=== PATIENT | female | born 1985 ===

== ENCOUNTER → 2023-01-03 | Outpatient (CLI) | payer OTHER ==
[2023-01-03 10:56] LABS: Source, Urine Clean Catch
[2023-01-03 11:58] LABS: Amorphous Mod (0-Heavy); Bacteria Rare /hpf; Mucus Light (0-Heavy); Red Blood Cells, Urine 0-2 /hpf (0-2); Squamous Epithelial Cells Rare /hpf (Few); White Blood Cells, Urine 0-2 /hpf (0-5)
[2023-01-05 04:07] LABS: HBSAG SCREEN Negative (Negative); HCV ANTIBODY Reactive (Non Reactive)
[2023-01-06 00:08] LABS: HIV AB/P24 AG SCREEN Non Reactive (Non Reactive)
== END | disposition home or self-care (01) ==
LOC: LAB SHORT 10:53 → LAB 10:53
PROVIDERS: Obstetrics & Gynecology
DX: Z34.01 Encounter for supervision of normal first pregnancy, first trimester (principal)
CPT/HCPCS: 81015; 84443; 86592; 86762; 86803; 86850; 86900; 86901; 87086; 87340; 87389

== ENCOUNTER → 2023-02-21 | Outpatient (CLI) | payer OTHER ==
[2023-02-22 13:00] LABS: Candida species (DNA Probe) Negative (NEGATIVE); G. vaginalis (DNA Probe) Negative (NEGATIVE); T. vaginalis (DNA Probe) Negative (NEGATIVE)
== END | disposition home or self-care (01) ==
LOC: LAB 17:33 → LAB SHORT 17:33
PROVIDERS: Obstetrics & Gynecology
DX: N76.0 Acute vaginitis (principal)
CPT/HCPCS: 87480; 87510; 87660

== ENCOUNTER 2023-08-07 18:53 | Inpatient (IN) | payer BC ==
[~2023-08-07] VITALS: Ht 165.1 cm; Wt 83.2 kg
[2023-08-07 19:41] VITALS: BP 118/74
[2023-08-07] MEDS ORDERED: OMEP20ER PO (20:25)
[2023-08-07] MEDS ORDERED: VALA500 PO (20:26)
[2023-08-07 20:34] LABS: BASOPHILS ABSOLUTE AUTO 0.04 K/mm3 (0.00-0.23); BASOPHILS PERCENT AUTO 0 % (0-2); EOSINOPHILS ABSOLUTE AUTO 0.27 K/mm3 (0.00-0.68); EOSINOPHILS PERCENT AUTO 2 % (0-6); Hematocrit 37.5 % (33.0-51.0); Hemoglobin 13.2 g/dL (11.5-16.0); IMMATURE GRAN PERCENT AUTO 1 % (0-1); LYMPHOCYTES ABSOLUTE AUTO 3.33 K/mm3 (0.84-5.20); LYMPHOCYTES PERCENT AUTO 24 % (21-46); MONOCYTES ABSOLUTE AUTO 1.08 K/mm3 (0.16-1.47); MONOCYTES PERCENT AUTO 8 % (4-13); Mean Corpuscular HGB 30.9 pg (26.0-34.0); Mean Corpuscular HGB Conc 35.2 g/dL (31.5-36.5); Mean Corpuscular Volume 88 fL (80-100); Mean Platelet Volume 11.1 fL (9.1-12.4); NEUTROPHILS ABSOLUTE AUTO 8.98 K/mm3 (1.96-9.15); NEUTROPHILS PERCENT AUTO 65 % (41-73); Platelet Count 281 K/mm3 (150-400); RDW Coefficient Variation 12.8 % (11.7-14.2); RDW Standard Deviation 40.8 fL (35.1-46.3); Red Blood Cell Count 4.27 M/mm3 (3.80-5.20)
[2023-08-08 01:20] VITALS: BP 103/50
[2023-08-08 08:27] VITALS: BP 113/71
== END 2023-08-08 09:04 | disposition home or self-care (01) | DRG 832 ==
LOC: BC 18:53 → OBS 18:53 → BC 19:22
PROVIDERS: ADMIT Obstetrics & Gynecology
DX: O99.323 Drug use complicating pregnancy, third trimester (principal); N39.0 Urinary tract infection, site not specified; O98.313 Other infections with a predominantly sexual mode of transmission complicating pregnancy, third trimester; O23.43 Unspecified infection of urinary tract in pregnancy, third trimester; Z3A.39 39 weeks gestation of pregnancy; F12.90 Cannabis use, unspecified, uncomplicated; B19.20 Unspecified viral hepatitis C without hepatic coma; R12 Heartburn; O99.891 Other specified diseases and conditions complicating pregnancy; A60.09 Herpesviral infection of other urogenital tract; O99.820 Streptococcus B carrier state complicating pregnancy; Z90.89 Acquired absence of other organs; Z87.891 Personal history of nicotine dependence; Z88.5 Allergy status to narcotic agent; Z79.2 Long term (current) use of antibiotics; Z79.899 Other long term (current) drug therapy
CPT/HCPCS: 36415; 85025; 86850; 86900; 86901; A9270; J0290

== ENCOUNTER 2023-08-10 15:47 | Inpatient (IN) | payer BC ==
[~2023-08-10] VITALS: Ht 167.6 cm; Wt 83.0 kg
[~2023-08-10 15:47] MED LIST: OMEP20ER PO; VALA500 PO
[2023-08-10 16:03] VITALS: BP 123/74
[2023-08-10 16:20] LABS: BASOPHILS ABSOLUTE AUTO 0.05 K/mm3 (0.00-0.23); BASOPHILS PERCENT AUTO 0 % (0-2); EOSINOPHILS ABSOLUTE AUTO 0.18 K/mm3 (0.00-0.68); EOSINOPHILS PERCENT AUTO 2 % (0-6); Hematocrit 38.2 % (33.0-51.0); Hemoglobin 13.3 g/dL (11.5-16.0); IMMATURE GRAN ABSOLUTE AUTO 0.06 K/mm3 (0.00-0.10); IMMATURE GRAN PERCENT AUTO 1 % (0-1); LYMPHOCYTES ABSOLUTE AUTO 2.64 K/mm3 (0.84-5.20); LYMPHOCYTES PERCENT AUTO 22 % (21-46); MONOCYTES ABSOLUTE AUTO 0.72 K/mm3 (0.16-1.47); MONOCYTES PERCENT AUTO 6 % (4-13); Mean Corpuscular HGB 30.9 pg (26.0-34.0); Mean Corpuscular HGB Conc 34.8 g/dL (31.5-36.5); Mean Corpuscular Volume 89 fL (80-100); Mean Platelet Volume 10.7 fL (9.1-12.4); NEUTROPHILS ABSOLUTE AUTO 8.54 K/mm3 (1.96-9.15); NEUTROPHILS PERCENT AUTO 70 % (41-73); Platelet Count 268 K/mm3 (150-400); RDW Coefficient Variation 12.8 % (11.7-14.2); RDW Standard Deviation 41.5 fL (35.1-46.3); White Blood Cell Count 12.19 K/mm3 (4.00-11.30)
[2023-08-10 19:26] VITALS: BP 130/71
[2023-08-10 22:24] VITALS: BP 104/57
[2023-08-11] VITALS (26 sets, daily range): BP systolic 101–148; BP diastolic 59–94
[2023-08-12] VITALS (20 sets, daily range): BP systolic 105–140; BP diastolic 55–106
--- NOTE | 2023-08-12 01:55 | NUR ---
08/12/23 0155 Ariadne Lackey TIME: 010.
[2023-08-12 06:07] LABS: BASOPHILS ABSOLUTE AUTO 0.03 K/mm3 (0.00-0.23); BASOPHILS PERCENT AUTO 0 % (0-2); EOSINOPHILS ABSOLUTE AUTO 0.03 K/mm3 (0.00-0.68); EOSINOPHILS PERCENT AUTO 0 % (0-6); Hematocrit 32.1 % (33.0-51.0); Hemoglobin 11.2 g/dL (11.5-16.0); IMMATURE GRAN ABSOLUTE AUTO 0.09 K/mm3 (0.00-0.10); IMMATURE GRAN PERCENT AUTO 1 % (0-1); LYMPHOCYTES PERCENT AUTO 8 % (21-46); MONOCYTES ABSOLUTE AUTO 1.08 K/mm3 (0.16-1.47); MONOCYTES PERCENT AUTO 6 % (4-13); Mean Corpuscular HGB 31.1 pg (26.0-34.0); Mean Corpuscular HGB Conc 34.9 g/dL (31.5-36.5); Mean Corpuscular Volume 89 fL (80-100); Mean Platelet Volume 10.8 fL (9.1-12.4); NEUTROPHILS ABSOLUTE AUTO 16.25 K/mm3 (1.96-9.15); NEUTROPHILS PERCENT AUTO 86 % (41-73); Platelet Count 210 K/mm3 (150-400); RDW Standard Deviation 42.5 fL (35.1-46.3); White Blood Cell Count 18.98 K/mm3 (4.00-11.30)
--- NOTE | 2023-08-12 14:06 | NUR ---
up walking in room viveros out linen changed
[2023-08-13 03:18] VITALS: BP 109/64
[2023-08-13 09:11] VITALS: BP 122/81
[2023-08-13 11:41] VITALS: BP 108/68
[2023-08-13 16:09] VITALS: BP 119/76
[2023-08-13 21:17] VITALS: BP 109/72
[2023-08-13 23:29] VITALS: BP 118/78
[2023-08-14 04:34] VITALS: BP 117/76
[2023-08-14 08:12] VITALS: BP 115/85
[2023-08-14 09:24] LABS: HIV 1,2 COMBO ANTIGEN/ANTIBODY Negative (Negative)
[2023-08-14 09:33] VITALS: BP 130/81
--- NOTE | 2023-08-14 10:38 | NUR ---
BANDS MATCHED. PT TO BE DISCHARGED HOME WITH .
[2023-08-14 13:23] LABS: HCV QNT BY NAAT (IU/ML) Not Detected; HCV QNT BY NAAT (LOG IU/ML) Not Detected; HCV QNT BY NAAT INTERP Not Detected (Not Detected)
== END 2023-08-14 11:05 | disposition home or self-care (01) | DRG 787 ==
LOC: OBS 15:47 → BC 15:52 → OBS 15:56 → BC 16:00
PROVIDERS: Advanced Practice Midwife; ADMIT Obstetrics & Gynecology
PROC: 10D00Z1 Extraction of Products of Conception, Low, Open Approach (ICD-10-PCS; principal; 2023-08-12)
PROC: 0U7C7ZZ Dilation of Cervix, Via Natural or Artificial Opening (ICD-10-PCS; 2023-08-12)
DX: O98.82 Other maternal infectious and parasitic diseases complicating childbirth (principal); N39.0 Urinary tract infection, site not specified; O99.324 Drug use complicating childbirth; O23.43 Unspecified infection of urinary tract in pregnancy, third trimester; B95.1 Streptococcus, group B, as the cause of diseases classified elsewhere; Z3A.39 39 weeks gestation of pregnancy; Z37.0 Single live birth; O98.52 Other viral diseases complicating childbirth; B00.9 Herpesviral infection, unspecified; F12.90 Cannabis use, unspecified, uncomplicated; O98.42 Viral hepatitis complicating childbirth; B19.20 Unspecified viral hepatitis C without hepatic coma; O76 Abnormality in fetal heart rate and rhythm complicating labor and delivery; R12 Heartburn; O99.892 Other specified diseases and conditions complicating childbirth; Z88.5 Allergy status to narcotic agent; Z87.891 Personal history of nicotine dependence; Z79.899 Other long term (current) drug therapy
CPT/HCPCS: 36415; 51702; 85025; 86850; 86900; 86901; 87389; 87522; A9270; J0290; J0456; J0690; J1170; J1200; J1885; J2001; J2270; J2405; J2590; J2704; J2765; J3010; J7050; J7120

== ENCOUNTER → 2025-02-22 | Outpatient (CLI) | payer BC, OTHER ==
[2025-02-23 10:12] LABS: Bacterial Vaginosis PCR Negative (NEGATIVE); Candida Group, PCR DETECTED (NOT DETECT); Candida glabrata-krusei, PCR NOT DETECTED (NOT DETECT)
== END ==
LOC: LAB SHORT 16:51 → LAB 16:51
PROVIDERS: Obstetrics & Gynecology
DX: N76.0 Acute vaginitis (principal)
CPT/HCPCS: 81515

== ENCOUNTER → 2025-04-14 | Outpatient (CLI) | payer BC, OTHER ==
[2025-04-14 19:32] LABS: Bacterial Vaginosis PCR Negative (NEGATIVE); Candida glabrata-krusei, PCR NOT DETECTED (NOT DETECT)
[2025-04-14 19:56] LABS: Candida Group, PCR DETECTED (NOT DETECT)
== END ==
LOC: LAB 16:57 → LAB SHORT 16:57
PROVIDERS: Obstetrics & Gynecology
DX: N89.8 Other specified noninflammatory disorders of vagina (principal)
CPT/HCPCS: 81515

== ENCOUNTER 2025-04-25 12:39 | Inpatient (IN) | payer BC, OTHER ==
[2025-04-25] VITALS (22 sets, daily range): BP systolic 95–118; BP diastolic 49–75
[~2025-04-25] VITALS: Ht 165.1 cm; Wt 82.2 kg
[2025-04-25] MEDS ORDERED: Metoclopramide HCl 5MG / ML 2ML Vial IV ONE (13:05)
[2025-04-25] MEDS ORDERED: Citric Acid/Sodium Citrate 30 ML BTL PO SCH (13:05)
[2025-04-25] MEDS ORDERED: CeFAZolin Sodium 2,000 MG in NS 100 ML IV SCH (13:05)
[2025-04-25 13:35] LABS: BASOPHILS ABSOLUTE AUTO 0.04 K/mm3 (0.00-0.23); BASOPHILS PERCENT AUTO 0 % (0-2); EOSINOPHILS ABSOLUTE AUTO 0.08 K/mm3 (0.00-0.68); EOSINOPHILS PERCENT AUTO 1 % (0-6); Hematocrit 39.6 % (33.0-51.0); Hemoglobin 13.7 g/dL (11.5-16.0); IMMATURE GRAN ABSOLUTE AUTO 0.11 K/mm3 (0.00-0.10); IMMATURE GRAN PERCENT AUTO 1 % (0-1); LYMPHOCYTES ABSOLUTE AUTO 2.19 K/mm3 (0.84-5.20); LYMPHOCYTES PERCENT AUTO 18 % (21-46); MONOCYTES ABSOLUTE AUTO 0.76 K/mm3 (0.16-1.47); MONOCYTES PERCENT AUTO 6 % (4-13); Mean Corpuscular HGB Conc 34.6 g/dL (31.5-36.5); Mean Corpuscular Volume 90 fL (80-100); NEUTROPHILS ABSOLUTE AUTO 8.93 K/mm3 (1.96-9.15); NEUTROPHILS PERCENT AUTO 74 % (41-73); NRBC ABSOLUTE 0.00 K/mm3 (0.00-0.02); NRBC Auto 0.0 /100 WBC (0.0-0.2); Platelet Count 236 K/mm3 (150-400); RDW Coefficient Variation 13.2 % (11.7-14.2); RDW Standard Deviation 43.8 fL (35.1-46.3)
[2025-04-25] MEDS ORDERED: Methylergonovine Maleate 0.2MG / ML 1ML Amp IM PRN (13:40)
[2025-04-25] MEDS ORDERED: Carboprost Tromethamine 250 MCG/ML 1ML Amp IM PRN (13:40)
[2025-04-25] MEDS ORDERED: Oxytocin 10 Unit / ML Vial IM PRN (13:40)
[2025-04-25] MEDS ORDERED: OXYTOCIN/RINGER'S LACTATE 500 ML IV PRN (13:40)
[2025-04-25] MEDS ORDERED: Ondansetron HCl 2 MG / ML 2ML Vial IV PRN ×3 (13:40→17:20)
[2025-04-25] MEDS ORDERED: Tranexamic Acid 100 ML IV SCH (13:40)
[2025-04-25] MEDS ORDERED: PRENATAL TABLE1 EAC2 PO (14:04)
[2025-04-25] MEDS ORDERED: OMEP20ER PO (14:05)
[2025-04-25] MEDS ORDERED: Magnesium250 MG (14:05)
[2025-04-25] MEDS ORDERED: Dexamethasone Sod Phos 10 MG/ML 1ML VIAL ONE (16:13)
[2025-04-25] MEDS ORDERED: FentaNYL Citrate 50 MCG/ML 2 ML Injection ONE (16:13)
[2025-04-25] MEDS ORDERED: Ondansetron HCl 2 MG / ML 2ML Vial ONE (16:13)
[2025-04-25] MEDS ORDERED: HYDROmorphone HCl/Pf 1MG SYR IV PRN (17:00)
--- NOTE | 2025-04-25 17:01 | NUR ---
04/25/25 1701 Sirena Lopez FHTS PRIOR TO CASE WERE 120S. DELIVERY OF VIABLE FEMALE AT 1628 WEIGHT [id number]. PLACENTA DELIVERYED MANUALLY, COMPLETE. CORD BLOOD SAMPLE SENT WITH BABY'S RN. BILATERAL SALPINGECTOMY PERFORMED.
[2025-04-25] MEDS ORDERED: FentaNYL Citrate 50 MCG/ML 2 ML Injection IV PRN (17:05)
[2025-04-25] MEDS ORDERED: Ketorolac Tromethamine 15mg Vial IV PRN (17:15)
[2025-04-25] MEDS ORDERED: Magnesium Hydroxide Conc 10 ML UDC PO PRN (17:25)
[2025-04-25] MEDS ORDERED: Rho(D) Immune Globulin 300 MCG / SYR IM ONE (17:25)
[2025-04-25] MEDS ORDERED: OXYTOCIN/RINGER'S LACTATE 16.66666666 ML IV SCH (17:25)
--- NOTE | 2025-04-25 17:34 | NUR ---
DENIES PAIN AT THIS TIME. HAPPY AND TALKATIVE WITH Victoria AUSTIN
[2025-04-25] MEDS ORDERED: Ketorolac Tromethamine 30mg Vial IV SCH (18:00)
--- NOTE | 2025-04-25 23:56 | NUR ---
AQUACEL DRESSING TAKEN OFF, PT REPORTED SEVERE BURNING WITH DRESSING. RN CALLED PROVIDER AND GOT OK TO TAKE DRESSING OFF AND REPLACE WITH MEDIPORE DRESSING, ONE SMALL OPEN BLISTER WAS NOTED WHILE TAKING OFF THE AQUACEL. PT TOLERATED DRESSING CHANGE WELL, PT AMBULATED TO CHAIR EASILY. LINEN CHANGED
[2025-04-26 01:59] VITALS: BP 121/57
[2025-04-26 04:11] VITALS: BP 108/60
[2025-04-26 07:18] VITALS: BP 98/60
[2025-04-26 07:25] LABS: BASOPHILS ABSOLUTE AUTO 0.04 K/mm3 (0.00-0.23); BASOPHILS PERCENT AUTO 0 % (0-2); EOSINOPHILS ABSOLUTE AUTO 0.01 K/mm3 (0.00-0.68); EOSINOPHILS PERCENT AUTO 0 % (0-6); Hematocrit 36.8 % (33.0-51.0); Hemoglobin 12.3 g/dL (11.5-16.0); IMMATURE GRAN ABSOLUTE AUTO 0.11 K/mm3 (0.00-0.10); IMMATURE GRAN PERCENT AUTO 1 % (0-1); LYMPHOCYTES ABSOLUTE AUTO 1.60 K/mm3 (0.84-5.20); LYMPHOCYTES PERCENT AUTO 8 % (21-46); MONOCYTES ABSOLUTE AUTO 1.49 K/mm3 (0.16-1.47); MONOCYTES PERCENT AUTO 8 % (4-13); Mean Corpuscular HGB Conc 33.4 g/dL (31.5-36.5); NEUTROPHILS ABSOLUTE AUTO 16.31 K/mm3 (1.96-9.15); NEUTROPHILS PERCENT AUTO 83 % (41-73); NRBC ABSOLUTE 0.00 K/mm3 (0.00-0.02); NRBC Auto 0.0 /100 WBC (0.0-0.2); Platelet Count 225 K/mm3 (150-400); RDW Coefficient Variation 13.3 % (11.7-14.2); RDW Standard Deviation 45.8 fL (35.1-46.3)
[2025-04-26 07:33] LABS: Mean Corpuscular Volume 95 fL (80-100)
[2025-04-26] MEDS ORDERED: Polyethylene Glycol 3350 17 gm PO SCH (09:00)
[2025-04-26] MEDS ORDERED: Prenatal Vit/FE Fumarate/FA 1 Tab PO SCH (09:00)
[2025-04-26 12:30] VITALS: BP 114/68
[2025-04-26 19:54] VITALS: BP 117/69
[2025-04-27 00:08] VITALS: BP 101/51
[2025-04-27 04:14] VITALS: BP 101/67
[2025-04-27 07:21] VITALS: BP 110/56
[2025-04-27 10:14] VITALS: BP 107/60
== END 2025-04-27 10:38 | disposition home or self-care (01) | DRG 785 ==
LOC: BC 12:58
PROVIDERS: Family Medicine; ADMIT Obstetrics & Gynecology
PROC: 10D00Z1 Extraction of Products of Conception, Low, Open Approach (ICD-10-PCS; principal; 2025-04-25 16:00)
PROC: 0UB70ZZ Excision of Bilateral Fallopian Tubes, Open Approach (ICD-10-PCS; 2025-04-25 16:00)
DX: O34.211 Maternal care for low transverse scar from previous cesarean delivery (principal); O99.62 Diseases of the digestive system complicating childbirth; Z3A.39 39 weeks gestation of pregnancy; Z37.0 Single live birth; K21.9 Gastro-esophageal reflux disease without esophagitis; Z30.2 Encounter for sterilization; O32.1XX0 Maternal care for breech presentation, not applicable or unspecified; Z88.5 Allergy status to narcotic agent
CPT/HCPCS: 36415; 85025; 86850; 86900; 86901; 86923; 88302; A9270; J0690; J1100; J1885; J2405; J2765; J3010; J7120